=== PATIENT | male | born 1985 | race Caucasian/White ===

== ENCOUNTER 2018-02-15 20:01 | Emergency (ER) | payer SELFPAY ==
--- NOTE | 2018-02-15 20:51 | RAD ---
FINGERS RIGHT HAND: HISTORY: Injury with pain. TECHNIQUE: Middle finger evaluated. FINDINGS: No fracture or dislocation. IMPRESSION: No acute abnormality. POS: [facility]
[2018-02-15] MEDS ORDERED: Ketorolac Tromethamine 30 MG/ML VIAL ONE (21:47)
[2018-02-15] MEDS ORDERED: Adacel (T-DAP) 0.5 ML VIAL ONE (22:30)
== END 2018-02-15 23:15 | disposition home or self-care (01) ==
LOC: ERS 20:01
DX: M79.89 Other specified soft tissue disorders (principal); M79.644 Pain in right finger(s); F17.210 Nicotine dependence, cigarettes, uncomplicated
CPT/HCPCS: 11740; 90471; 90715; 96372; J1885

== ENCOUNTER 2018-08-02 20:29 | Emergency (ER) | payer SELFPAY ==
[2018-08-02 21:30] LABS: #Basophils 0.1 thou/uL (0.0-0.2); #Eosinphils 0.3 thou/uL (0.0-0.7); #Monocytes 0.6 thou/uL (0.11-0.59); #Neutrophils 6.6 thou/uL (1.40-6.50); %Basophils 0.6 % (0.0-1.0); %Eosinophils 2.8 % (0.0-10.0); %Lymphocytes 28.7 % (21.0-51.0); %Monocytes 5.5 % (0.0-10.0); %Neutrophils 62.4 % (42.0-75.0); Hemoglobin 17.2 g/dL (14.0-18.0); Mean Corpuscular HGB CONC 33.9 g/dL (32.0-36.0); Mean Corpuscular Hemoglobin 29.5 pg (27.0-31.0); Mean Corpuscular Volume 87.1 fL (78.0-98.0); Mean Platelet Volume 7.6 fL (7.4-10.4); Platelet Count 261 thou/uL (130-400); RBC Distribution Width 11.3 % (11.5-14.5); Red Blood Cell (RBC) Count 5.84 mill/uL (4.70-6.10); White Blood Cell (WBC) Count 10.5 thou/uL (4.8-10.8)
--- NOTE | 2018-08-02 21:32 | ULT ---
SCROTAL ULTRASOUND: 08/02/2018 HISTORY: Scrotal pain. COMPARISON: None. TECHNIQUE: Multiplanar lua-scale sonographic imaging of the scrotal contents with Doppler interrogation of the testicles, including color-flow and spectral analysis. FINDINGS: The right testicle measures 4.1 x 1.9 x 3.2 cm and the left testicle measures 4.4 x 2.5 x 3.3 cm. No intratesticular mass is identified on either side. Both testicles demonstrate normal symmetric bloo d flow. A tiny right-sided hydrocele is noted. Right epididymal head measures 10 x 8 mm and left epididymal head measures 1.2 x 0.8 cm. Incidental note is made of a left varicocele. IMPRESSION: No acute findings. Left-sided varicocele and trace right hydrocele noted. POS: [facility]
[2018-08-02 21:50] LABS: ALT (SGPT) 36 U/L (8-55); AST (SGOT) 20 U/L (5-34); Albumin 4.5 g/dL (3.5-5.0); Alkaline Phosphatase 80 U/L (40-150); Anion Gap 15 mmol/L (10-20); BUN (Urea Nitrogen) 16 mg/dL (8.9-20.6); Bilirubin, Total 0.5 mg/dL (0.2-1.2); Calc. Creatinine Clearance 0 mL/min (70-130); Calcium 8.9 mg/dL (7.8-10.44); Carbon Dioxide 22 mmol/L (22-29); Chloride 103 mmol/L (98-107); Estimated GFR-MDRD 76; Globulin 3.1 g/dL (2.4-3.5); Glucose 103 mg/dL (70-105); Potassium 3.8 mmol/L (3.5-5.1); Protein, Total 7.6 g/dL (6.0-8.3); Sodium 136 mmol/L (136-145)
[2018-08-02] MEDS ORDERED: Ketorolac Tromethamine 60 MG/2 ML VIAL ONE (21:57)
[2018-08-02] MEDS ORDERED: Ondansetron ODT 4 MG TAB ONE (22:10)
[2018-08-02 22:21] LABS: Bilirubin Negative (Negative); Blood, Urine Trace (Negative); Clarity CLEAR (Clear); Glucose, Urine (Dipstick) Negative (Negative); Leukocyte Negative (Negative); Nitrite Negative (Negative); Protein, Urine (Dipstick) 30 mg/dL (Neg-Trace); Urobilinogen 0.2 mg/dL (0.2-1.0)
[2018-08-02 22:24] LABS: Bacteria/HPF None Seen HPF (None Seen); Pathc Cast-AUWi Flag 0.14 (0-2.49); WBC/HPF 0-3 HPF (0-3)
[2018-08-02 22:25] LABS: Hyaline Casts/LPF 0-3 HYALINE CAST LPF (0-3 Hyaline)
[2018-08-04 01:39] LABS: Chlamydia by PCR Not Detected (NotDetected); GC by PCR Not Detected (NotDetected)
== END 2018-08-02 22:15 | disposition home or self-care (01) ==
LOC: ERS 20:29
DX: N45.1 Epididymitis (principal); N20.0 Calculus of kidney; F17.210 Nicotine dependence, cigarettes, uncomplicated
CPT/HCPCS: 36415; 76870; 80053; 85025; 87086; 87491; 87591; 93976; 96372; J1885; Q0162

== ENCOUNTER 2018-09-19 14:42 | Emergency (ER) | payer SELFPAY ==
[2018-09-19] MEDS ORDERED: HYDROcodone/Acetaminophen 5/325 mg Tablet ONE ×2 (15:36→15:51)
[2018-09-19 15:42] LABS: Bilirubin Negative (Negative); Blood, Urine Negative (Negative); Clarity CLEAR (Clear); Glucose, Urine (Dipstick) Negative (Negative); Leukocyte Negative (Negative); Nitrite Negative (Negative); Protein, Urine (Dipstick) Negative (Neg-Trace); Specific Gravity, Urine 1.032 (1.002-1.036); Urobilinogen 0.2 mg/dL (0.2-1.0); pH, Urine 5.5 (5.0-9.0)
--- NOTE | 2018-09-19 17:37 | ULT ---
SCROTAL ULTRASOUND: Date: 09-19-18 Comparison: 08-02-18 History: Left sided scrotal/testicular pain, increased mobility of left testicle. Technique: Multiplanar grayscale sonographic imaging of the scrotal contents obtained with doppler in terrogation of the testicles including color flow and spectral analysis. FINDINGS: At the time of this examination, both testicles are seen within the scrotum. The farm instructor reports that when the patient performed a valsalva maneuver, the left testicle does s hift up into the superior aspect of the left hemiscrotum while the right testicle does not. Right testicle measures: 4.6 x 3.6 x 2.6 cm. Left testicle measures: 4.2 x 3.5 x 2.2 cm. There is normal blood flow within best testicles. No intratesticular mass. Epididymal head measures 2.8 x 1.1 x 0.9 cm on the right and 1.4 x 0.9 x 0.8 cm on the left. The bila teral epididymis appears grossly unremarkable. IMPRESSION: No evidence for testicular torsion or testicular mass lesion. The left testicle is seen to shift ceph alad with valsalva maneuver. POS: [facility]
== END 2018-09-19 16:54 | disposition home or self-care (01) ==
LOC: ERS 14:42
DX: N50.812 Left testicular pain (principal); F17.210 Nicotine dependence, cigarettes, uncomplicated
CPT/HCPCS: 76870; 81003; 93976

== ENCOUNTER 2018-09-23 20:31 | Emergency (ER) | payer SELFPAY | END 2018-09-23 21:45 | disposition left against medical advice (07) | LOC: ERS 20:31 | DX: Z53.21 Procedure and treatment not carried out due to patient leaving prior to being seen by health care provider (principal) ==

== ENCOUNTER 2018-09-25 20:51 | Emergency (ER) | payer SELFPAY ==
[2018-09-25] MEDS ORDERED: HYDROcodone/Acetaminophen 5/325 mg Tablet ONE (21:57)
--- NOTE | 2018-09-25 22:04 | ULT ---
TESTICULAR ULTRASOUND: 09/25/18 HISTORY: Left scrotal pain for one week. Symptoms are worse today. COMPARISON: 09/19/18. FINDINGS: Testicles demonstrate a normal sonographic appearance bilaterally without evidence of a testicular ma ss. The right testicle measures 4.7 cm x 2.1 cm x 3 cm. The left testicle measures 4.3 cm x 1.7 cm x 3 cm. Doppler evaluation of each testicle with spectral analysis and color flow evaluation demonstrat es arterial and venous flow in each testicle. The epididymes demonstrate a normal sonographic appearance bilaterally. There is no evidence of a hydrocele. There are mildly prominent serpiginous anechoic structures seen in the left scrotum which measure jus t greater than 3 mm in diameter with mild increased flow present. The findings are suggestive of smal l varicocele on the left. IMPRESSION: 1. Normal appearing bilateral testicles with arterial and venous flow documented in each testicl e. 2. Suggestion of a small left sided varicocele. POS: [facility]
== END 2018-09-25 23:10 | disposition home or self-care (01) ==
LOC: ERS 20:51
DX: N50.812 Left testicular pain (principal); F17.210 Nicotine dependence, cigarettes, uncomplicated
CPT/HCPCS: 76870; 93976

== ENCOUNTER 2018-12-05 17:16 | Observation (INO) | payer SELFPAY ==
[2018-12-05 17:35] LABS: #Basophils 0.1 thou/uL (0.0-0.2); #Eosinphils 0.4 thou/uL (0.0-0.7); #Lymphocytes 2.4 thou/uL (1.20-3.40); #Monocytes 0.4 thou/uL (0.11-0.59); #Neutrophils 5.1 thou/uL (1.40-6.50); %Basophils 0.8 % (0.0-1.0); %Eosinophils 4.3 % (0.0-10.0); %Lymphocytes 28.9 % (21.0-51.0); %Monocytes 5.2 % (0.0-10.0); %Neutrophils 60.8 % (42.0-75.0); Hemoglobin 16.3 g/dL (14.0-18.0); Mean Corpuscular HGB CONC 35.1 g/dL (32.0-36.0); Mean Corpuscular Hemoglobin 30.7 pg (27.0-31.0); Mean Corpuscular Volume 87.5 fL (78.0-98.0); Mean Platelet Volume 7.4 fL (7.4-10.4); Platelet Count 253 thou/uL (130-400); RBC Distribution Width 11.7 % (11.5-14.5); Red Blood Cell (RBC) Count 5.32 mill/uL (4.70-6.10); White Blood Cell (WBC) Count 8.4 thou/uL (4.8-10.8)
[2018-12-05 17:59] LABS: ALT (SGPT) 30 U/L (8-55); AST (SGOT) 22 U/L (5-34); Albumin 4.3 g/dL (3.5-5.0); Alkaline Phosphatase 74 U/L (40-150); Anion Gap 14 mmol/L (10-20); BUN (Urea Nitrogen) 16 mg/dL (8.9-20.6); Bilirubin, Total 0.3 mg/dL (0.2-1.2); CK (CPK) 109 U/L (30-200); Calc. Creatinine Clearance 0 mL/min (70-130); Calcium 8.9 mg/dL (7.8-10.44); Carbon Dioxide 21 mmol/L (22-29); Chloride 107 mmol/L (98-107); Estimated GFR-MDRD 90; Globulin 3.3 g/dL (2.4-3.5); Glucose 126 mg/dL (70-105); Lipase 14 U/L (8-78); Potassium 3.7 mmol/L (3.5-5.1); Protein, Total 7.6 g/dL (6.0-8.3); Sodium 138 mmol/L (136-145)
[2018-12-05] MEDS ORDERED: Acetaminophen 500 MG TAB ONE (18:19)
[2018-12-05] MEDS ORDERED: Acetaminophen 325 MG TAB PO PRN (21:02)
[2018-12-05] MEDS ORDERED: Promethazine 25 MG TAB PO PRN (21:02)
[2018-12-05 21:03] VITALS: BMI 26.3
[2018-12-05 21:10] LABS: Troponin I Less than 0.010 ng/mL (< 0.028)
[2018-12-05] MEDS: HYDROcodone/Acetaminophen 5/325 mg Tablet PO PRN (21:16)
--- NOTE | 2018-12-05 23:08 | HP ---
PRIMARY CARE PHYSICIAN: The patient does not have a primary care physician. CHIEF COMPLAINT: Feeling dizzy and lightheaded and passed out. HISTORY OF PRESENT ILLNESS: Mr. Reinoso is a 33-year-old gentleman who has no significant past medical history other than a congenital pulmonary artery stenosis. He was in his usual state of health until about 2 weeks ago he began having spells in which he would get very lightheaded and dizzy and then feel extremely tired. He would feel his heart beat more pronounced than usual and then he passed out. He sought medical attention at the [facility]. There, he was hospitalized for about 2 days and then apparently, he had an echocardiogram performed in which it was reported as being normal. They said that the pulmonary artery stenosis looked "okay" and did not find any significant abnormalities. They placed an event monitor on him and told him to follow up. He was at home and doing okay until this afternoon around 3:45 he started feeling lightheaded and dizzy again. It lasted for about an hour and he was feeling extremely tired and started having chest pain afterwards. For this reason, the family tried to get into the car to come to the hospital. 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 The patient currently still has some headache and he says that he typically does get some chest pain afterwards. There was no nausea, no vomiting. No diaphoresis. He did not feel flushed. His says his heart rate was actually slow in the ambulance, but she cannot remember the exact number. Right now, he is essentially back to his baseline. The patient says he has good exercise tolerance, but has lately been feeling more fatigued. He denies any PND. No orthopnea. No lower extremity edema. REVIEW OF SYSTEMS: All systems were reviewed and are negative except for that mentioned in the history of present illness. PAST MEDICAL HISTORY: Significant for congenital pulmonary artery stenosis. PAST SURGICAL HISTORY: He has had bilateral inguinal hernia repair. ALLERGIES: NO KNOWN DRUG ALLERGIES. SOCIAL HISTORY: He is , has 4 children. He smokes about half a pack of cigarettes daily and he has done this for about 2-3 years. Denies any alcohol use. He works as a heavy blow moulding machine operator. FAMILY HISTORY: He said his father has diabetes. Mother had COPD. He had a daughter who was recently diagnosed with supravalvular aortic stenosis and their son was diagnosed with right ventricular hypertrophy. There are no siblings with any known coronary or heart defects that they know of. MEDICATIONS: None. PHYSICAL EXAMINATION: GENERAL: He is alert and oriented. He appears to be in no acute distress. VITAL SIGNS: Blood pressure 138/80, heart rate 77, respiratory rate of 19, temperature is 99.0. HEENT: Pupils are equal, round, and reactive. Extraocular muscles are intact. Sclerae anicteric. Throat, no erythema, no exudates. NECK: No adenopathy. There were no bruits, but he did seem to have a fairly bounding carotid pulse. LUNGS: Clear to auscultation. There is no wheezing, no rales, no rhonchi. CARDIOVASCULAR: He had a normal S1, S2. I did not appreciate an S3 or S4. No murmurs, clicks, or rubs. ABDOMEN: Soft. It is nontender, nondistended. Positive for bowel sounds. There is no rebound, no guarding. No organomegaly. EXTREMITIES: There is no clubbing, cyanosis, or edema. No calf tenderness. No joint effusions. NEUROLOGIC: His cranial nerves 2 through 12 are grossly intact. Muscle strength is 5/5 in both his upper and lower extremities. SKIN AND INTEGUMENT: No skin changes. No rash. LABORATORY DATA: Sodium 138, potassium 3.7, chloride is 107, CO2 is 21, BUN of 16, creatinine 0.95, glucose is 126. White blood cell count 8.4, hemoglobin 16.3, hematocrit is 46.6, and platelet count 253. DIAGNOSTIC STUDIES: On his EKG, there is a strip from the EMS, it was a 12-lead EKG and at that, one is sinus rhythm, the rate is approximately 80 and I do not appreciate any acute ST wave changes. This is by my reading. ASSESSMENT: This is a pleasant 33-year-old gentleman who presents to the emergency room with syncope as well as presyncope. He has a history of congenital pulmonary artery stenosis and what sounds like two of his four children with some form of congenital cardiac abnormality. He currently has what appears to be either an event recorder or loop recorder in place. He will be placed in observation under telemetry. We will try to obtain the records from [facility] as well as the information from the cardiac recording device and consult our curtain feller blindstitch for further recommendations. Job ID: [id number]
[2018-12-05 23:56] LABS: Troponin I Less than 0.010 ng/mL (< 0.028)
[2018-12-06] MEDS: HYDROcodone/Acetaminophen 5/325 mg Tablet PO PRN ×5 (04:11→22:07)
[2018-12-06 05:09] LABS: #Eosinphils 0.3 thou/uL (0.0-0.7); #Lymphocytes 2.6 thou/uL (1.20-3.40); #Monocytes 0.5 thou/uL (0.11-0.59); %Basophils 0.6 % (0.0-1.0); %Lymphocytes 40.2 % (21.0-51.0); %Monocytes 7.6 % (0.0-10.0); %Neutrophils 47.5 % (42.0-75.0); Hemoglobin 15.7 g/dL (14.0-18.0); Mean Corpuscular HGB CONC 34.6 g/dL (32.0-36.0); Mean Corpuscular Hemoglobin 30.6 pg (27.0-31.0); Mean Corpuscular Volume 88.5 fL (78.0-98.0); Mean Platelet Volume 7.4 fL (7.4-10.4); Platelet Count 217 thou/uL (130-400); RBC Distribution Width 11.7 % (11.5-14.5); Red Blood Cell (RBC) Count 5.14 mill/uL (4.70-6.10); White Blood Cell (WBC) Count 6.4 thou/uL (4.8-10.8)
[2018-12-06 05:26] LABS: Anion Gap 11 mmol/L (10-20); BUN (Urea Nitrogen) 12 mg/dL (8.9-20.6); Calc. Creatinine Clearance 129 mL/min (70-130); Calcium 8.3 mg/dL (7.8-10.44); Carbon Dioxide 21 mmol/L (22-29); Chloride 110 mmol/L (98-107); Estimated GFR-MDRD Greater than 90; Glucose 104 mg/dL (70-105); Potassium 3.9 mmol/L (3.5-5.1); Sodium 138 mmol/L (136-145)
[2018-12-06] MEDS ORDERED: Ketorolac Tromethamine 30 MG/ML VIAL IVP PRN (11:14)
--- NOTE | 2018-12-06 17:18 | PDOC.PN ---
- Subjective Encounter Start Date: 12/06/18 Encounter Start Time: 17:16 Patient lying in bed, he reports mild headache this morning that improved. He denies chest pain, palpitation, shortness of breath. Workup from [facility] was unremarkable. Records obtained along with device interrogation which showed 3-4 episodes of sinus tachycardia. - Objective Resuscitation Status - Order Detail: 12/05/18 19:43 Resuscitation Status Routine Resuscitation Status: FULL: Full Resuscitation MAR Reviewed: Yes Vital Signs & Weight: Vital Signs (12 hours) Temp Pulse Resp BP Pulse Ox 12/06/18 15:11 97.8 F 64 16 132/76 95 12/06/18 11:57 97.8 F 64 16 125/62 95 12/06/18 07:32 97.8 F 56 L 16 114/68 96 Weight Weight 168 lb Result Diagrams: 12/06/18 04:52 12/06/18 04:52 Radiology Reviewed by me: Yes Phys Exam - Physical Examination Constitutional: NAD HEENT: moist MMs, oral pharynx no lesions Neck: supple, full ROM Respiratory: no wheezing, no rales Cardiovascular: RRR, no significant murmur Gastrointestinal: soft, positive bowel sounds Musculoskeletal: no edema, pulses present Neurological: non-focal, moves all 4 limbs Psychiatric: normal affect, A&O x 3 Skin: no rash, cap refill <2 seconds Dx/Plan (1) Syncope Code(s): R55 - SYNCOPE AND COLLAPSE Status: Acute (2) Sinus tachycardia Code(s): R00.0 - TACHYCARDIA, UNSPECIFIED Status: Acute - Plan cont current plan of care, plan discussed w/ family * Patient records obtained from [facility] * Device interrogated and displayed sinus tachycardia * Cardiology following * Plan for treadmill stress test * If stress negative, likely discharge home with close outpatient follow up
--- NOTE | 2018-12-06 17:26 | CON ---
DATE OF CONSULTATION: REASON FOR CONSULTATION: Syncope. HISTORY OF PRESENT ILLNESS: Mr. Reinoso is a 33-year-old gentleman, who has been worked up for syncope at [facility] [place], [place]. He recently had a syncopal episode per his significant other. She states he was difficult to arouse. This happened intermittently. He was in and out of consciousness. This has happened over the last 3 weeks. No trauma has been noted. EMS was called. He has a 3-week event recorder that showed sinus tachycardia during the episode. No significant dysrhythmias were present. He also complains of chest pain that is mainly in the substernal region, sharp in nature. PAST MEDICAL HISTORY: Coronary artery stenosis, allergies, and inguinal hernia repair. ALLERGIES: NONE. SOCIAL HISTORY: He is currently and with 4 children. Positive tobacco use. FAMILY HISTORY: Daughter with the diagnosis of supravalvular aortic stenosis and son with right ventricular hypertrophy. HOME MEDICATIONS: None. REVIEW OF SYSTEMS: Ten-point review of systems is reviewed and as above, otherwise negative. PHYSICAL EXAMINATION: VITAL SIGNS: Blood pressure 132/76, pulse 64, and temperature 97.8. GENERAL: Patient is a pleasant man who is in no acute distress. The patient appears their stated age. NEUROLOGIC: The patient is alert and oriented x3 with no focal neurologic deficits. HEENT: Sclerae without icterus. Mouth has moist mucous membranes with normal pallor. NECK: No JVD. Carotid upstroke brisk. No bruits bilaterally. LUNGS: Clear to auscultation with unlabored respirations. BACK: No scoliosis or kyphosis. CARDIAC: Regular rate and rhythm with normal S1 and S2. No S3 or S4 noted. No significant rubs, murmurs, thrills, or gallops noted throughout the precordium. PMI is not displaced. There is no parasternal heave. ABDOMEN: Soft, nontender, nondistended. No peritoneal signs present. No hepatosplenomegaly. No abnormal striae. EXTREMITIES: 2+ femoral and 2+ dorsalis pedis pulses. No cyanosis, clubbing, or edema. SKIN: No gross abnormalities. PERTINENT LABORATORY DATA: Hemoglobin 15.7, hematocrit 45.5, and white blood cell count 6.4. Echo with Doppler is currently pending. IMPRESSION: Syncope. RECOMMENDATIONS: It does not appear Mr. Reinoso's symptoms are related to underlying dysrhythmia. He may have advanced pulmonic stenosis with echo currently pending. Symptoms of pulmonic stenosis would include extended fatigue, shortness of breath, syncope, and even chest pain. Recommend assessing the gradient on echo and if felt to be mild, we would then recommend a treadmill stress test. Job ID: [id number]
[2018-12-07] MEDS: HYDROcodone/Acetaminophen 5/325 mg Tablet PO PRN ×3 (04:19→12:53)
[2018-12-07 12:16] VITALS: BP 119/70; TEMP 98
== END 2018-12-07 15:25 | disposition home or self-care (01) ==
LOC: ERS 17:16 → 2SW 19:03
PROVIDERS: ADMIT Internal Medicine; ATTEND Internal Medicine
DX: R55 Syncope and collapse (principal); Q25.6 Stenosis of pulmonary artery; F17.210 Nicotine dependence, cigarettes, uncomplicated; R00.0 Tachycardia, unspecified; Z95.818 Presence of other cardiac implants and grafts
CPT/HCPCS: 36415; 80048; 80053; 82550; 83690; 84484; 85025; 93005; 93017; 93306; G0378